=== PATIENT | male | born 1970 | race Caucasian/White ===

== ENCOUNTER 2018-08-30 10:15 | Emergency (ER) | payer OTHER ==
[~2018-08-30] VITALS: Ht 175.3 cm; Wt 68.5 kg
[2018-08-30 10:22] VITALS: Ht 175.3 cm; Wt 68.5 kg
[2018-08-30 11:07] LABS: BASOPHIL % 0.2 % (0-2); RED CELL DISTRIBUTION WIDTH 12.8 % (11.5-14.5)
[2018-08-30 11:13] LABS: PLATELET COUNT 546 x10^3mcL (130-400)
[2018-08-30 11:19] LABS: ALKALINE PHOSPHATASE 89 U/L (46-116); ALT/SGPT 24 U/L (16-63); AST/SGOT 23 U/L (15-37); BILIRUBIN TOTAL 0.45 mg/dL (0.20-1.00); CALCIUM 9.3 mg/dL (8.5-10.1); CARBON DIOXIDE 22.6 mmol/L (21-32); CHLORIDE SERUM 107 mmol/L (98-107); CREATININE SERUM 1.1 mg/dL (0.7-1.3); GFR1 > 60 mL/min; GLUCOSE SERUM 114 mg/dL (74-106); LIPASE 144 IU/L (73-393); SODIUM SERUM 145 mmol/L (136-145); TOTAL PROTEIN, SERUM 7.3 g/dL (6.4-8.2)
[2018-08-30 11:31] LABS: ALBUMIN 3.2 g/dL (3.4-5.0)
[2018-08-30 11:32] LABS: POTASSIUM SERUM 2.9 mmol/L (3.5-5.1)
[2018-08-30 14:51] VITALS: BP 118/79
== END 2018-08-30 15:04 | disposition home or self-care (01) ==
LOC: ED 10:15
PROVIDERS: Emergency Medicine
DX: F11.23 Opioid dependence with withdrawal (principal); E87.6 Hypokalemia; R19.7 Diarrhea, unspecified; Z88.8 Allergy status to other drugs, medicaments and biological substances
CPT/HCPCS: 87046; 87046-59; J2405; J7030; Q0092

== ENCOUNTER 2019-05-03 15:15 | Emergency (ER) | payer OTHER ==
[~2019-05-03] VITALS: Ht 175.3 cm; Wt 74.8 kg
[2019-05-03 15:17] VITALS: Ht 175.3 cm; Wt 74.8 kg
[2019-05-03 16:19] VITALS: BP 126/91
== END 2019-05-03 16:19 | disposition other institution (70) ==
LOC: ED 15:15
DX: Z02.89 Encounter for other administrative examinations (principal)